=== PATIENT | female | born 1985 | race Caucasian/White ===

== ENCOUNTER 2020-11-26 07:59 | Emergency (ER) | payer MEDICAID ==
[2020-11-26] MEDS: Acetaminophen/HYDROcodone 325-5 MG Tab PO ONE (08:21)
--- NOTE | 2020-11-26 08:22 | EDM.PDOC ---
ED HPI GENERAL MEDICAL PROBLEM - General Chief Complaint: General Stated Complaint: TOOTH ACHE Time Seen by Provider: 11/26/20 08:05 Source of Information: Reports: Patient, RN History Limitations: Reports: No Limitations - History of Present Illness INITIAL COMMENTS - FREE TEXT/NARRATIVE: 35 yo female presents with progressive dental pain for the past week. Has some facial swelling, but no fever. Has not sought care via her primary care doctor or a dentist. Is taking ibuprofen 600 mg every 3 hrs for pain relief. 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 Right Lower Tooth/Teeth Pain Score (Numeric/FACES): 7 - Related Data Allergies Allergy/AdvReac Type Severity Reaction Status Date / Time No Known Allergies Allergy Verified 12/28/13 12:01 Home Meds: Home Meds Acetaminophen/HYDROcodone [HYDROcodone-Acetaminophen 5-325 MG *] 1 tab PO Q4H PRN #12 each 11/26/20 [Rx] Penicillin V Potassium 500 mg PO Q6HR #40 tab 11/26/20 [Rx] Social & Family History - Family History Family Medical History: No Pertinent Family History - Tobacco Use Tobacco Use Status *Q: Never Tobacco User - Caffeine Use Caffeine Use: Reports: Coffee, Soda - Recreational Drug Use Recreational Drug Use: No ED ROS GENERAL - Review of Systems Review Of Systems: See Below Constitutional: Reports: No Symptoms. Denies: Fever, Chills HEENT: Reports: Dental Pain Respiratory: Reports: No Symptoms GI/Abdominal: Reports: No Symptoms Skin: Reports: No Symptoms Neurological: Reports: No Symptoms ED EXAM, GENERAL - Physical Exam Exam: See Below Exam Limited By: No Limitations General Appearance: Alert, WD/WN, No Apparent Distress Eye Exam: Bilateral Eye: Normal Inspection Ears: Normal External Exam, Normal Canal, Hearing Grossly Normal Ear Exam: Bilateral Ear: Auricle Normal, Canal Normal Nose: Normal Inspection, No Blood Throat/Mouth: Normal Inspection, Normal Lips, Normal Oropharynx, Normal Voice, No Airway Compromise. No: Normal Teeth (several teeth with visible decay. R anterior mandibular premolar has a portion broken away and this is causing her distress. ) Head: Facial Swelling (slight swelling to the mandible adjacent to the decayed/broken tooth. ) Neck: Normal Inspection, Supple, Non-Tender. No: Lymphadenopathy (R), Lymphadenopathy (L) Respiratory/Chest: No Respiratory Distress, Lungs Clear, Normal Breath Sounds, No Accessory Muscle Use Cardiovascular: Regular Rate, Rhythm Extremities: Normal Inspection Neurological: Alert, Oriented, CN II-XII Intact, Normal Cognition, No Motor/Sensory Deficits Skin Exam: Warm, Dry, Intact, Normal Color, No Rash Course - Vital Signs Last Recorded V/S: Last Vital Signs Temp 35.7 C L 11/26/20 08:00 Pulse 77 11/26/20 08:00 Resp 20 11/26/20 08:00 BP 125/77 11/26/20 08:00 Pulse Ox 99 11/26/20 08:00 - Orders/Labs/Meds Meds: Medications Discontinued Medications Generic Name Dose Route Start Last Admin Trade Name Freq PRN Reason Stop Dose Admin Hydrocodone Bitart/Acetaminophen 1 tab 11/26/20 08:14 Acetaminophen/Hydrocodone 325-5 Mg Tab PO 11/26/20 08:15 ONETIME ONE Penicillin V Potassium 500 mg 11/26/20 08:14 Penicillin V Potassium 500 Mg Tab PO 11/26/20 08:15 NOW STA Departure - Departure Time of Disposition: 08:23 Disposition: Home, Self-Care 01 Condition: Fair Clinical Impression: Dental decay, Pain, dental - Discharge Information *PRESCRIPTION DRUG MONITORING PROGRAM REVIEWED*: Not Applicable *COPY OF PRESCRIPTION DRUG MONITORING REPORT IN PATIENT SAMUEL: Not Applicable Prescriptions: Acetaminophen/HYDROcodone [HYDROcodone-Acetaminophen 5-325 MG *] 1 tab PO Q4H PRN #12 each PRN Reason: Pain Penicillin V Potassium 500 mg PO Q6HR #40 tab Instructions: Dental Pain, [id number]-Ariv Referrals: Magda Merritt NP [Primary Care Provider] - Additional Instructions: Reduce your ibuprofen to no more than 600 mg every 6 hrs and take with food. Add either acetaminophen 1000 mg every 6 hrs OR [place] for added relief. Take Penicillin as directed. See a dentist JULIO to get this problem repaired. See your family doctor in the interim if needed. Sepsis Event Note (ED) - Evaluation Sepsis Screening Result: No Definite Risk - Focused Exam Vital Signs: Vital Signs Temp Pulse Resp BP Pulse Ox 11/26/20 08:00 35.7 C L 77 20 125/77 99
[2020-11-26] MEDS: Penicillin V Potassium 500 MG Tab PO STA (08:25)
== END 2020-11-26 08:32 | disposition home or self-care (01) ==
LOC: FB.ED 07:59
DX: K02.9 Dental caries, unspecified (principal)
CPT/HCPCS: 99283; A9270

== ENCOUNTER 2023-04-28 16:18 | Emergency (ER) | payer OTHER, MEDICAID | END 2023-04-28 18:40 | disposition home or self-care (01) | LOC: FB.ED 16:18 | DX: S16.1XXA Strain of muscle, fascia and tendon at neck level, initial encounter (principal); S80.12XA Contusion of left lower leg, initial encounter; V49.49XA Driver injured in collision with other motor vehicles in traffic accident, initial encounter; Y92.410 Unspecified street and highway as the place of occurrence of the external cause | CPT/HCPCS: 72040; 73590-LT; 99283; 99284 ==